=== PATIENT | female | born 1950 | race Caucasian/White ===

== ENCOUNTER 2021-01-19 05:15 | Day surgery (SDC) | payer MEDICARE, OTHER ==
[~2021-01-19 05:15] MED LIST: AMBIEN10 MG PO; APLENZIN PO; ASPIRIN325 MG PO; BACLOFEN10 MG PO; BACTROBAN NASAL1 GM; CYMBALTA 30MG C30 MG PO; ELIQUIS5 MG PO; HCTZ12.5 MG PO; HYDROCODON-ACE1 EAC4 PO; HYDROXYZINE HCL25 MG PO; LOTEMAX5 ML OU; MELATONIN10 M2 PO; MIRALAX 238GM238 GM PO; NORCO 5-325 TA1 EACH PO; OMEPRAZOLE 20MG20 MG PO; PERCOCET 5-3251 EACH PO; PERCOCET 7.5/321 TAB PO; PREVAGEN PO; SPIRONOLACTONE25 MG PO; STOOL SOFTENER100 MG PO; TRAMADOL HCL50 MG PO; TRAZODONE 100M100 MG PO; VRAYLAR3 MG PO; XANAX0.5 MG PO; XARELTO10 MG PO; ZOFRAN4 MG PO
[2021-01-19] MEDS ORDERED: REMERON15 MG PO (05:51)
[2021-01-19] MEDS ORDERED: ZYPREXA 5MG TABL5 MG PO (05:51)
[2021-01-20 06:24] LABS: BASOPHIL 0.1 % (0-2); EOSINOPHIL 0.1 % (0-7); HCT 28.5 % (37.0-47.0); HGB 9.1 g/dl (12.5-16.0); LYMPHOCYTE 11.4 % (15-48); MCH 30.4 pg (25.0-31.0); MCHC 31.9 g/dL (32.0-36.0); MCV 95.3 fL (78.0-100.0); MONOCYTE 6.6 % (0-12); MPV 10.4 fL (6.0-9.5); NEUTROPHIL 81.2 % (41-80); NRBC 0; PLT 157 K/uL (150-400); RBC 2.99 M/uL (4.20-5.40); RDW 12.6 % (11.5-14.0); WBC 12.3 K/uL (4.0-10.5)
[2021-01-20 06:51] LABS: BUN/CREAT RATIO (CALC) 16.4 RATIO; CREATININE 0.67 mg/dL (0.51-0.95); POTASSIUM 3.9 mmol/L (3.5-5.1)
[2021-01-20] MEDS ORDERED: 3IN1 COMMODE XX (09:08)
[2021-01-20] MEDS ORDERED: FEOSOL325 MG PO (09:09)
[2021-01-20] MEDS ORDERED: XARELTO10 MG PO (09:09)
[2021-01-20] MEDS ORDERED: ZOFRAN4 M1 PO (09:20)
--- NOTE | 2021-01-20 10:26 | NUR ---
PT. TO D/C HOME WITH SPOUSE. PT. REQUESTED [facility] TO DELIVER A 3/1 UPON DISCHARGE. PT. HAS A ROLLING WALKER. PT. COPAY FOR [facility] IS $172.87. PLEASE FAX D/C PAPERWORK TO [phone].
--- NOTE | 2021-01-20 12:41 | NUR ---
PT. TO D/C HOME WITH SPOUSE. PT. HAS A ROLLING WALKER. [facility] TO DELIVER A 3/1 UPON DISCHARGE. PT. REQUESTED [facility] FOR PT/OT AND NURSING ASSESSMENT. PT. COPAY FOR [facility] IS $172.87 PT. IS IN AGREEMENT WITH COST.
== END 2021-01-20 12:20 | disposition home health service (06) ==
LOC: FAS 05:15 → FMS 08:50
PROVIDERS: Legal Medicine
DX: M17.11 Unilateral primary osteoarthritis, right knee (principal); I25.10 Atherosclerotic heart disease of native coronary artery without angina pectoris; I11.0 Hypertensive heart disease with heart failure; I50.9 Heart failure, unspecified; F41.8 Other specified anxiety disorders; K21.9 Gastro-esophageal reflux disease without esophagitis; G47.30 Sleep apnea, unspecified; E11.9 Type 2 diabetes mellitus without complications; M06.9 Rheumatoid arthritis, unspecified; M79.7 Fibromyalgia; Z86.73 Personal history of transient ischemic attack (TIA), and cerebral infarction without residual deficits; Z90.49 Acquired absence of other specified parts of digestive tract; Z86.711 Personal history of pulmonary embolism; Z96.652 Presence of left artificial knee joint; Z96.611 Presence of right artificial shoulder joint; Z88.5 Allergy status to narcotic agent; Z88.0 Allergy status to penicillin; Z88.2 Allergy status to sulfonamides; Z88.8 Allergy status to other drugs, medicaments and biological substances; Z91.048 Other nonmedicinal substance allergy status; Z91.040 Latex allergy status; Z87.891 Personal history of nicotine dependence; Z79.899 Other long term (current) drug therapy; Z20.822 Contact with and (suspected) exposure to COVID-19
CPT/HCPCS: 36415; 73560; 80048; 85025; 86850; 86900; 86901; 94010; 94760; 94762; 97110; 97116; 97162; 97166; 97530-GP; 97535; C1713; C1776; J0171; J0735; J1100; J1170; J1885; J2250; J2405; J2704; J2795; J3010; J7120